=== PATIENT | female | born 1955 | race African-American/Black ===

== ENCOUNTER 2021-04-06 09:22 | Day surgery (SDC) | payer MEDICARE, MEDICAID ==
[2021-04-06 10:50] LABS: #Basophils 0.1 thou/uL (0.0-0.2); #Eosinphils 0.1 thou/uL (0.0-0.7); #Lymphocytes 1.9 thou/uL (1.20-3.40); #Monocytes 0.5 thou/uL (0.11-0.59); #Neutrophils 6.3 thou/uL (1.40-6.50); %Basophils 0.8 % (0.0-1.0); %Eosinophils 0.9 % (0.0-10.0); %Lymphocytes 21.7 % (21.0-51.0); %Monocytes 5.5 % (0.0-10.0); %Neutrophils 71.2 % (42.0-75.0); Hemoglobin 12.5 g/dL (12.0-16.0); Mean Corpuscular HGB CONC 33.6 g/dL (32.0-36.0); Mean Corpuscular Volume 83.3 fL (78.0-98.0); Mean Platelet Volume 8.6 fL (7.4-10.4); Platelet Count 272 thou/uL (130-400); RBC Distribution Width 14.1 % (11.5-14.5); Red Blood Cell (RBC) Count 4.47 mill/uL (4.20-5.40); White Blood Cell (WBC) Count 8.9 thou/uL (4.8-10.8)
[2021-04-06 11:12] LABS: SARS-CoV-2 NAA Rapid Test Not Detected (NotDetected)
[2021-04-06] MEDS ORDERED: Bupivacaine PF 0.5% 30 ML VIAL ONE (15:19)
[2021-04-06] MEDS ORDERED: Thrombin 5000 UNITS/5 ML VIAL ONE (15:19)
[2021-04-06] MEDS ORDERED: Bacitracin Zinc Ointment 30 gm TUBE ONE (15:19)
[2021-04-06] MEDS ORDERED: Sodium Chloride 0.9% 30 ML ONE (15:19)
[2021-04-06] MEDS ORDERED: Fentanyl 100 MCG/2 ML VIAL ONE (15:36)
[2021-04-06] MEDS ORDERED: Ketorolac Tromethamine 30 MG/ML VIAL ONE (15:40)
[2021-04-06] MEDS ORDERED: PHENYLEPHRINE-NS 100 MCG/ML 10 ML SYRINGE ONE (15:40)
[2021-04-06] MEDS ORDERED: Ondansetron PF 4 MG/2 ML Vial ONE (15:40)
[2021-04-06] MEDS ORDERED: Lidocaine 1% PF 5 ML VIAL ONE (15:40)
[2021-04-06] MEDS ORDERED: ePHEDrine Sulfate 50 MG/10 ML VIAL ONE (15:40)
[2021-04-06] MEDS ORDERED: Dexamethasone 20 MG/5 ML VIAL ONE (15:40)
[2021-04-06] MEDS ORDERED: PROPOFOL 200 MG/20 ML VIAL ONE (15:40)
[2021-04-07 11:56] LABS: ANA Symphony (Qualitative) Negative (Negative); ANA Symphony (Quantitative) 0.1 Ratio (< 0.7 Negative)
== END 2021-04-06 19:15 | disposition home or self-care (01) ==
LOC: SDC 09:22
PROVIDERS: ATTEND Orthopaedic Surgery Hand Surgery
PROC: 0LQ60ZZ Repair Left Lower Arm and Wrist Tendon, Open Approach (ICD-10-PCS; principal; 2021-04-06)
PROC: 0LQ60ZZ Repair Left Lower Arm and Wrist Tendon, Open Approach (ICD-10-PCS; 2021-04-06)
DX: S66.321A Laceration of extensor muscle, fascia and tendon of left index finger at wrist and hand level, initial encounter (principal); I10 Essential (primary) hypertension; E78.5 Hyperlipidemia, unspecified; I45.10 Unspecified right bundle-branch block; Z79.82 Long term (current) use of aspirin; Z20.822 Contact with and (suspected) exposure to COVID-19; W26.0XXA Contact with knife, initial encounter
CPT/HCPCS: 25270 ×2; 73130; 85025; 86038; 86225; 93005; U0002; U0005; 36415; 93010; J0690; J1100; J1885; J2405; J2704; J3010; J3490; S0020

== ENCOUNTER 2021-07-09 06:20 | Inpatient (IN) | payer MEDICARE, MEDICAID ==
[2021-07-07 17:14] VITALS: BMI 18.8
[2021-07-09 08:44] LABS: Hemoglobin 15.1 g/dL (12.0-16.0); Mean Corpuscular HGB CONC 33.6 g/dL (32.0-36.0); Mean Corpuscular Hemoglobin 27.9 pg (27.0-31.0); Mean Corpuscular Volume 83.2 fL (78.0-98.0); Mean Platelet Volume 9.6 fL (7.4-10.4); Platelet Count 252 thou/uL (130-400); White Blood Cell (WBC) Count 8.6 thou/uL (4.8-10.8)
[2021-07-09 09:02] LABS: #Basophils 0.1 thou/uL (0.0-0.2); #Eosinphils 0.2 thou/uL (0.0-0.7); #Lymphocytes 2.8 thou/uL (1.20-3.40); #Monocytes 0.6 thou/uL (0.11-0.59); #Neutrophils 4.9 thou/uL (1.40-6.50); %Basophils 1.5 % (0.0-1.0); %Eosinophils 2.1 % (0.0-10.0); %Lymphocytes 32.7 % (21.0-51.0); %Monocytes 6.5 % (0.0-10.0); %Neutrophils 57.2 % (42.0-75.0); Band 2 % (5-11); Eosinophils 4 % (0-10); Lymphocytes 31 % (21-51); MDiff Complete? YES; Monocytes 5 % (0-10); Neutrophil 56 % (42-75); Platelet Morphology Comment Appears Adequate; Polychromasia SLIGHT = 2-3 cells (100X) (0-2/hpf); Reactive Lymphocytes 1 % (0-10); Target Cells SLIGHT = 2-5 cells (100X) (0-1/hpf)
[2021-07-09 09:14] LABS: SARS-CoV-2 NAA Rapid Test Not Detected (NotDetected)
[2021-07-09 09:38] LABS: Bacteria/HPF None Seen HPF (None Seen); Bilirubin Negative (Negative); Blood, Urine Negative (Negative); Clarity Clear (Clear); Glucose, Urine (Dipstick) Normal (Negative); Ketone, Urine Negative (Negative); Leukocyte Negative Leu/uL (Negative); Nitrite Negative (Negative); Protein, Urine (Dipstick) Negative (Neg-Trace); RBC/HPF 0-3 HPF (0-3); Specific Gravity, Urine 1.015 (1.002-1.036); Squamous Epithelial 0-3 HPF (0-3); Urobilinogen Normal mg/dL (Less than 2); WBC/HPF 0-3 HPF (0-3); pH, Urine 5.5 (5.0-9.0)
[2021-07-09] MEDS ORDERED: Midazolam HCl 2 mg/2 ml Vial ONE ×2 (10:24→10:35)
[2021-07-09] MEDS ORDERED: Fentanyl 100 MCG/2 ML VIAL ONE ×2 (10:24→10:35)
[2021-07-09] MEDS ORDERED: Bupivacaine PF 0.5% 30 ML VIAL ONE ×2 (10:38→11:02)
[2021-07-09] MEDS ORDERED: Bacitracin Zinc Ointment 30 gm TUBE ONE (10:38)
[2021-07-09] MEDS ORDERED: Neomycin-Polymyxin 1 ML AMP ONE (10:38)
[2021-07-09] MEDS ORDERED: Ondansetron PF 4 MG/2 ML Vial ONE (11:02)
[2021-07-09] MEDS ORDERED: ePHEDrine 50 MG/ML VIAL ONE (11:02)
[2021-07-09] MEDS ORDERED: Lidocaine 1% PF 5 ML VIAL ONE (11:02)
[2021-07-09] MEDS ORDERED: Dexamethasone 20 MG/5 ML VIAL ONE (11:02)
[2021-07-09] MEDS ORDERED: Ketorolac Tromethamine 30 MG/ML VIAL ONE (11:02)
[2021-07-09] MEDS ORDERED: Rocuronium Bromide 10 MG/ML (10ML VIAL) ONE (11:02)
[2021-07-09] MEDS ORDERED: PROPOFOL 200 MG/20 ML VIAL ONE (11:02)
[2021-07-09] MEDS ORDERED: PHENYLEPHRINE-NS 100 MCG/ML 10 ML SYRINGE ONE (11:02)
[2021-07-09] MEDS ORDERED: Promethazine HCl 25 MG/ML VIAL IVPB PRN (17:35)
[2021-07-09] MEDS ORDERED: Ondansetron HCl/PF 4 MG/2 ML Vial IVP PRN (17:35)
[2021-07-09] MEDS ORDERED: Promethazine HCl 25 MG/ML VIAL IM PRN ×2 (17:35→17:45)
[2021-07-09] MEDS ORDERED: HYDROcodone/Acetaminophen 5/325 mg Tablet PO PRN (17:45)
[2021-07-09] MEDS ORDERED: Ondansetron PF 4 MG/2 ML Vial SLOW IVP PRN (17:45)
[2021-07-09] MEDS ORDERED: Morphine 4 MG/ML VIAL SLOW IVP PRN (17:45)
[2021-07-09] MEDS ORDERED: Acetaminophen 325 MG TAB PO PRN (17:45)
[2021-07-09] MEDS ORDERED: traMADol HCl 50 MG TAB PO PRN (17:45)
[2021-07-09] MEDS ORDERED: Communication Order-Pharmacy FS SCH (17:45)
[2021-07-09] MEDS ORDERED: Meperidine HCl/PF 25 MG/ML VIAL IM PRN (17:50)
[2021-07-09] MEDS ORDERED: TETANUS AND DIPHTHERIA TOX/PF 0.5 ML DISP.SYRIN IM SCH (20:00)
[2021-07-09] MEDS ORDERED: Vancomycin 1 GM in Premix Bag 1 BAG IVPB SCH (20:00)
[2021-07-09] MEDS: Aspirin 81 mg Enteric Coated Tablet PO SCH (20:04)
[2021-07-09] MEDS: Sodium Chloride 0.9% 1,000 ML IV SCH (20:04)
[2021-07-09] MEDS: Ketorolac Tromethamine 30 MG/ML VIAL IVP SCH ×2 (20:05→23:25)
[2021-07-10] MEDS: Sodium Chloride 0.9% 1,000 ML IV SCH (04:55)
[2021-07-10] MEDS: Ketorolac Tromethamine 30 MG/ML VIAL IVP SCH (05:14)
[2021-07-10 07:45] VITALS: BP 135/71; TEMP 98.1
[2021-07-10] MEDS: Aspirin 81 mg Enteric Coated Tablet PO SCH (08:13)
== END 2021-07-10 10:30 | disposition home or self-care (01) | DRG 506 ==
LOC: SDC 06:20 → SURG A 17:45
PROVIDERS: ADMIT Orthopaedic Surgery Hand Surgery; ATTEND Orthopaedic Surgery Hand Surgery
PROC: 0RRV0JZ Replacement of Left Metacarpophalangeal Joint with Synthetic Substitute, Open Approach (ICD-10-PCS; principal; 2021-07-09)
PROC: 0RNV0ZZ Release Left Metacarpophalangeal Joint, Open Approach (ICD-10-PCS; 2021-07-09)
PROC: 0LX80ZZ Transfer Left Hand Tendon, Open Approach (ICD-10-PCS; 2021-07-09)
DX: S63.265A Dislocation of metacarpophalangeal joint of left ring finger, initial encounter (principal); E78.00 Pure hypercholesterolemia, unspecified; I10 Essential (primary) hypertension; M24.542 Contracture, left hand; S63.263A Dislocation of metacarpophalangeal joint of left middle finger, initial encounter; S63.261A Dislocation of metacarpophalangeal joint of left index finger, initial encounter; X58.XXXA Exposure to other specified factors, initial encounter; Z20.822 Contact with and (suspected) exposure to COVID-19; Z79.899 Other long term (current) drug therapy; Z86.73 Personal history of transient ischemic attack (TIA), and cerebral infarction without residual deficits; Z83.3 Family history of diabetes mellitus; Z82.49 Family history of ischemic heart disease and other diseases of the circulatory system
CPT/HCPCS: 76000; 81001; 85025; C1713; C1776; J0690; J1100; J1885; J2250; J2405; J2704; J3010; J3370; J3490; J7050; S0020; U0002; U0005